=== PATIENT | male | born 1945 | race Caucasian/White ===

== ENCOUNTER 2017-03-04 08:39 | Emergency (ER) | payer MEDICARE, OTHER ==
[~2017-03-04] VITALS: Ht 177.8 cm; Wt 86.4 kg
[2017-03-04 08:43] VITALS: BP 159/89; PULSE 56; RESP 16; O2SAT 98
--- NOTE | 2017-03-04 08:56 | ED.REPORT ---
HPI-Hand Prob/Inj Date of Service March 04, 2017 ED Provider: Davon Galaviz MD 71 y/o male with no pertinent hx reported presents to the ED due to left hand middle finger injury, onset this morning. The pt reports he was playing basketball when he squished his finger, specifically the middle joint of the long finger of the left hand. Nursing Notes Stated Complaint: LEFT MIDDLE FINGER INJURY Chief Complaint: Extremity Trauma Allergies: Coded Allergies: No Known Allergies (Unverified , 03/04/17) General Time Seen by Provider: 08:55 Chief Complaint Finger injury left Hx Obtained From: Patient Arrived By: Walk-in Onset Occurred: 1 - 4 hours ago Symptom Duration: Since onset Caused by: Sports injury Location: Left Hand: : Finger... (Middle) Quality: Painful Severity: Current: Mild Severity: Maximum: Mild Immunizations: Unknown Recent Healthcare: No recent doctor visit Similar Sx Previous: No Past Medical History Past Medical History none reported Past Surgical History none reported Smoking History Unknown if Ever Smoker Ambulatory Status Independent Review of Systems Musculoskeletal: Reports: Extremity pain (Left middle finger), Extremity swelling (Middle finger of the left hand) Complete sys rev & neg: except as marked. Physical Exam Initial Vital Signs Vital Signs (First) Date Time Temp Pulse Resp B/P Pulse Ox O2 Delivery O2 Flow Rate FiO2 03/04/17 08:43 36.0 56 16 159/89 98 Room Air Initial VS: Reviewed Neck: Supple, Full range of motion Respiratory: No respiratory distress Extremities: Vascular intact, Neuro intact Skin: Warm, Dry, No cyanosis Neurologic: Alert, Oriented, Nonfocal Psychiatric: Mood/affect normal, Behavior normal, Normal thought content Wrist / Hand: Atraumatic, Full range of motion Tender middle joint of the long finger of the left hand. General/Constitutional: Awake, Alert, No acute distress, Cooperative Cardiovascular: Heart rate NL Back: Atraumatic, Full range of motion Interpretation & Diagnostics X-Ray Interpretation Xray Interpretation: IMPRESSION: 1. Subtle fracture along the volar base of the middle phalanx of the 3rd digit with corresponding dorsal dislocation of the middle phalanx with respect to the proximal phalanx. 2. Soft tissue swelling of the 3rd digit. Dictated by: Colin Wooten M.D. on 03/04/2017 at 8:28 Approved by: Colin Wooten M.D. on 03/04/2017 at 8:31 X-Ray Ordered: Hand left Interpretation / Wet Read by: Interpret - Radiologist Procedures Reduction Finger Time: 10:10 Procedure Performed by: ED physician Consent / Setup / Site Prep: Informed consent provided, Consent from patient Finger / Joint Involved: Left 3 Anesthetic Method / Agent: Lidocaine 1% Post-Procedure / Complications: No complications, Tolerated procedure well, Patient stable Re-Eval/Medical Decision Re-Evaluation/Progress #1: Time of Eval: 10:04 Re-Evaluation/Progress Note: Rechecked pt. Discussed imaging results and diagnosis. Informed the pt that reduction of the fracture will be required. The pt understands and agrees with the plan. Re-Evaluation/Progress #2: Time of Eval: 10:15 Patient Status: Condition improved Re-Evaluation/Progress Note: Rechecked pt. Discussed diagnosis. Informed the pt of the plan to discharge. Pt understands and agrees with plan. F/U instructions and RTER warning given. All questions addressed. Counseled Regarding: Diagnosis, Lab results, Need for follow-up, When/why to return to ED Discharge & Departure Primary Impression: Injury of middle finger Encounter type: initial encounter Laterality: left Qualified Code: S69.92XA - Unspecified injury of left wrist, hand and finger(s), initial encounter Disposition: Home Discharge Condition All VS Reviewed: Yes Condition: Stable Patient Instructions: Splint Care (ED) Additional Instructions: Your X-ray showed a dislocation of your left middle finger. We performed a reduction. Your pain and swelling should improve in a few days. Radiologist believes that he can see a hairline subtle fracture. I do not see this. In any case, the treatment would be the same either way. Immobilization for comfort until the pain resolves. If pain persists beyond a couple of weeks , I recommend follow-up at the regular clinic. Tylenol or ibuprofen as needed for pain. You can resume basketball when the pain and swelling resolve. Follow up with your primary care physician if needed. Return to the emergency department in case of increased pain, swelling or any other new or worsening symptoms. Scribe Attestation Portions of this note were transcribed by Yaquelin Rothman. I, , personally performed the history, physical exam and medical decision-making;I reviewed and confirmed the accuracy of the information in the transcribed note. Signed by Annia Rush. 03/04/17 1029 Davon Galaviz MD March 04, 2017 08:56 Yaquelin Rothman March 04, 2017 09:06
--- NOTE | 2017-03-04 09:32 | DRSVH ---
PROCEDURE: X-RAY FINGERS, TWO VIEWS INDICATIONS: jammed/dislocated middle finger TECHNIQUE: AP hand, 2 views of the middle (3rd) finger(s) acquired. COMPARISON: None. FINDINGS: Bones: Dislocation of the proximal interphalangeal joint of the left 3rd digit is identified with derek sandra displacement of the middle phalanx with respect to the proximal phalanx. A small fracture along the volar base of the middle phalanx is present. Otherwise, the remainder of the imaged osseous stru ctures are intact. There are mild to moderate degenerative changes throughout the small joints (meta carpophalangeal and interphalangeal) of the left hand. Soft tissues: No suspicious soft tissue calcifications. Moderate soft tissue swelling is noted invo lving the 3rd digit, centered at the proximal interphalangeal joint. No unexpected radiopaque foreig n bodies are identified. IMPRESSION: 1. Subtle fracture along the volar base of the middle phalanx of the 3rd digit with corresponding do rsal dislocation of the middle phalanx with respect to the proximal phalanx. 2. Soft tissue swelling of the 3rd digit. Dictated by: Colin Wooten M.D. on 03/04/2017 at 8:28 Approved by: Colin Wooten M.D. on 03/04/2017 at 8:31
[2017-03-04] MEDS ORDERED: Bupivacaine-MPF 0.5% 30 mL Inj ONE (10:05)
--- NOTE | 2017-03-04 10:52 | DRSVH ---
PROCEDURE: X-RAY FINGERS, TWO VIEWS INDICATIONS: 71-year-old male status post closed reduction of left third finger dislocation. TECHNIQUE: AP hand, 2 views of the left third finger(s) acquired. COMPARISON: [facility], CR, XR FINGER(S) LT 2VW, 03/04/2017, 9:07. FINDINGS: Overlying splint is now present. Bones: Left third proximal interphalangeal joint is in anatomic alignment after closed reduction. No fractures. No suspicious bony lesions. No joint degeneration. Soft tissues: No suspicious soft tissue calcifications. IMPRESSION: Successful closed reduction of left third proximal interphalangeal joint dorsal dislocati on. No fractures identified. Dictated by: Ta Beltran M.D. on 03/04/2017 at 10:50 Approved by: Ta Beltran M.D. on 03/04/2017 at 10:51
== END 2017-03-04 10:57 | disposition home or self-care (01) ==
LOC: SED 08:39
DX: S63.283A Dislocation of proximal interphalangeal joint of left middle finger, initial encounter (principal); S62.623A Displaced fracture of middle phalanx of left middle finger, initial encounter for closed fracture; W23.1XXA Caught, crushed, jammed, or pinched between stationary objects, initial encounter; Y93.67 Activity, basketball; Y92.019 Unspecified place in single-family (private) house as the place of occurrence of the external cause; Y99.8 Other external cause status